=== PATIENT | female | born 1955 | race Hispanic/Latino ===

== ENCOUNTER 2021-12-08 15:59 | Inpatient (IN) | payer OTHER ==
[~2021-12-08] VITALS: Ht 160 cm; Wt 47.4 kg
[~2021-12-08 15:59] MED LIST: ASPI-1005 PO; ATOR20TA65 PO; CLOB10TA17 PO; CLOP75TA14 PO; LEVO112C4 PO; METH2.5T6 PO; PHEN32.46 PO; PHEN64.8 PO; PRED5TAB PO
[2021-12-08 16:39] LABS: BASOPHILS % (AUTO) 0.9 % (0.0-5.0); EOSINOPHILS % (AUTO) 0.9 % (0.0-8.0); HEMATOCRIT 44.1 % (36-48); LYMPHOCYTES % (AUTO) 20.4 % (21.0-51.0); MEAN CORPUSCULAR HGB CONC 33.8 g/dL (32.0-36.0); MEAN CORPUSCULAR VOLUME 97.6 fL (79-99); MONOCYTES % (AUTO) 9.3 % (3.0-13.0); NEUTROPHILS % (AUTO) 68.2 % (40.0-77.0); PLATELET COUNT (AUTO) 157 K/uL (130-400); RED BLOOD CELL COUNT(AUTO) 4.52 MIL/uL (4.00-5.50); RED CELL DISTRIBUTION WIDTH 12.8 % (11.0-15.5); WHITE BLOOD COUNT (AUTO) 6.7 K/uL (4.8-10.8)
[2021-12-08 16:47] LABS: CREATININE 0.9 mg/dL (0.5-1.5); POTASSIUM 4.5 mmol/L (3.5-5.1)
[2021-12-08 16:51] LABS: MAGNESIUM 2.1 mg/dL (1.80-2.40); TOTAL PROTEIN, SERUM 7.6 g/dL (6.0-8.3)
[2021-12-08] MEDS ORDERED: ASPIRIN 325MG TAB PO ONE (17:30)
[2021-12-08 17:43] LABS: INR 0.94 (0.85-1.15); PROTHROMBIN TIME 10.3 SEC (9.6-11.6)
[2021-12-08 17:45] LABS: PARTIAL THROMBOPLASTIN TIME 25.3 SEC (26.3-35.5)
[2021-12-08] MEDS ORDERED: NITROGLYCERIN 0.4 MG SL TAB SL PRN (18:00)
[2021-12-08] MEDS ORDERED: ACETAMINOPHEN 500 MG TABLET PO PRN (18:00)
[2021-12-08] MEDS ORDERED: HEPARIN 5,000 UNIT VIAL SQ SCH (21:00)
[2021-12-08] MEDS ORDERED: 0.9%NACL 1000ML 1,000 ML IV SCH (21:00)
[2021-12-08] MEDS: ATORVASTATIN 20 MG TABLET PO SCH ×2 (21:31→21:34)
[2021-12-08] MEDS: CLOBAZAM 10 MG PO SCH (21:36)
[2021-12-08] MEDS ORDERED: ENOXAPARIN SODIUM 40 MG/0.4 ML SYRINGE SQ ONE (22:00)
[2021-12-09 02:29] LABS: BASOPHILS % (AUTO) 0.8 % (0.0-5.0); EOSINOPHILS % (AUTO) 2.3 % (0.0-8.0); HEMATOCRIT 37.1 % (36-48); LYMPHOCYTES % (AUTO) 36.5 % (21.0-51.0); MEAN CORPUSCULAR HEMOGLOBIN 32.9 pg (27.0-33.0); MEAN CORPUSCULAR VOLUME 96.9 fL (79-99); MONOCYTES % (AUTO) 14.2 % (3.0-13.0); PLATELET COUNT (AUTO) 144 K/uL (130-400); RED BLOOD CELL COUNT(AUTO) 3.83 MIL/uL (4.00-5.50); RED CELL DISTRIBUTION WIDTH 12.9 % (11.0-15.5)
[2021-12-09 02:48] LABS: CREATININE 0.6 mg/dL (0.5-1.5); POTASSIUM 3.6 mmol/L (3.5-5.1)
[2021-12-09] MEDS ORDERED: SULF500T8 PO (06:32)
[2021-12-09] MEDS ORDERED: PHARMACY COMMUNICATION MISC SCH (08:30)
[2021-12-09] MEDS ORDERED: ENOXAPARIN SODIUM 60 MG/0.6 ML SQ SCH (09:00)
[2021-12-09] MEDS: PREDNISONE 5 MG TABLET PO SCH (09:56)
[2021-12-09] MEDS: CLOPIDOGREL 75MG TAB PO SCH (09:56)
[2021-12-09] MEDS: SULFASALAZINE 500 MG TAB.DR PO SCH ×2 (09:56→21:00)
[2021-12-09] MEDS: ASPIRIN 81 MG EC TAB PO SCH (09:56)
[2021-12-09] MEDS: CLOBAZAM 10 MG PO SCH ×4 (09:57→21:00)
[2021-12-09 11:15] VITALS: BP 103/56
[2021-12-09 16:08] VITALS: BP 100/57
[2021-12-09] MEDS ORDERED: CLOBAZAM 10 MG PO SCH (17:00)
[2021-12-09 20:05] VITALS: BP 129/38
[2021-12-09] MEDS ORDERED: PHENOBARBITAL 1/4 GR TABLET PO SCH (21:00)
[2021-12-10 00:04] VITALS: BP 122/60
[2021-12-10 04:00] VITALS: BP 140/69
[2021-12-10 04:00] LABS: BASOPHILS % (AUTO) 0.8 % (0.0-5.0); EOSINOPHILS % (AUTO) 3.1 % (0.0-8.0); HEMATOCRIT 39.2 % (36-48); LYMPHOCYTES % (AUTO) 40.8 % (21.0-51.0); MEAN CORPUSCULAR HEMOGLOBIN 32.8 pg (27.0-33.0); MEAN CORPUSCULAR HGB CONC 33.9 g/dL (32.0-36.0); MEAN CORPUSCULAR VOLUME 96.6 fL (79-99); MONOCYTES % (AUTO) 15.3 % (3.0-13.0); PLATELET COUNT (AUTO) 149 K/uL (130-400); RED BLOOD CELL COUNT(AUTO) 4.06 MIL/uL (4.00-5.50); RED CELL DISTRIBUTION WIDTH 12.8 % (11.0-15.5); WHITE BLOOD COUNT (AUTO) 5.2 K/uL (4.8-10.8)
[2021-12-10 04:12] LABS: CREATININE 0.7 mg/dL (0.5-1.5); POTASSIUM 4.3 mmol/L (3.5-5.1)
[2021-12-10] MEDS ORDERED: LEVOTHYROXINE 112 MCG TABLET PO SCH (08:00)
[2021-12-10 08:58] VITALS: BP 121/77
[2021-12-10] MEDS: SULFASALAZINE 500 MG TAB.DR PO SCH (09:56)
[2021-12-10] MEDS: CLOPIDOGREL 75MG TAB PO SCH (09:57)
[2021-12-10] MEDS: PREDNISONE 5 MG TABLET PO SCH (09:57)
[2021-12-10] MEDS: ASPIRIN 81 MG EC TAB PO SCH (09:57)
[2021-12-10] MEDS: CLOBAZAM 10 MG PO SCH (09:57)
[2021-12-10 12:31] VITALS: BP 117/66
[2021-12-10] MEDS ORDERED: LEVO112C4 PO (13:16)
== END 2021-12-10 14:30 | disposition home or self-care (01) | DRG 281 ==
LOC: EDH 15:59 → EDHIP 17:44 → 2AH 12-09 10:30
PROVIDERS: ADMIT Internal Medicine; ATTEND Internal Medicine
DX: I21.4 Non-ST elevation (NSTEMI) myocardial infarction (principal); E27.49 Other adrenocortical insufficiency; M06.9 Rheumatoid arthritis, unspecified; Z20.822 Contact with and (suspected) exposure to COVID-19; I25.10 Atherosclerotic heart disease of native coronary artery without angina pectoris; G40.909 Epilepsy, unspecified, not intractable, without status epilepticus; E78.5 Hyperlipidemia, unspecified; E03.8 Other specified hypothyroidism; Z88.8 Allergy status to other drugs, medicaments and biological substances; I25.2 Old myocardial infarction; Z86.011 Personal history of benign neoplasm of the brain; Z88.1 Allergy status to other antibiotic agents
CPT/HCPCS: 36415; 71045; 80048; 80053; 82550; 83690; 83735; 83874; 83880; 84439; 84443; 84481; 84484; 85025; 85610; 85730; 87635; 93005; 93306; 93356; 93925; G0378; J1650; J7512

== ENCOUNTER 2022-03-31 08:52 | Observation (INO) | payer OTHER ==
[~2022-03-31] VITALS: Ht 160 cm; Wt 47.6 kg
[~2022-03-31 08:52] MED LIST changes: +CLOP-31 PO; -CLOP75TA14 PO; -METH2.5T6 PO; -PHEN32.46 PO; +SULF500T8 PO
[2022-03-31 09:26] LABS: BASOPHILS % (AUTO) 0.3 % (0.0-5.0); EOSINOPHILS % (AUTO) 1.4 % (0.0-8.0); HEMATOCRIT 44.9 % (36-48); LYMPHOCYTES % (AUTO) 19.4 % (21.0-51.0); MEAN CORPUSCULAR HEMOGLOBIN 32.9 pg (27.0-33.0); MEAN CORPUSCULAR HGB CONC 33.6 g/dL (32.0-36.0); MEAN CORPUSCULAR VOLUME 97.8 fL (79-99); MONOCYTES % (AUTO) 7.5 % (3.0-13.0); NEUTROPHILS % (AUTO) 71.1 % (40.0-77.0); PLATELET COUNT (AUTO) 174 K/uL (130-400); RED BLOOD CELL COUNT(AUTO) 4.59 MIL/uL (4.00-5.50); RED CELL DISTRIBUTION WIDTH 12.2 % (11.0-15.5); WHITE BLOOD COUNT (AUTO) 6.2 K/uL (4.8-10.8)
[2022-03-31 09:36] LABS: CREATININE 0.9 mg/dL (0.5-1.5); POTASSIUM 3.6 mmol/L (3.5-5.1)
[2022-03-31 09:40] LABS: ALBUMIN 3.6 g/dL (3.5-5.0); TOTAL PROTEIN, SERUM 7.5 g/dL (6.0-8.3)
[2022-03-31] MEDS ORDERED: ONDANSETRON 4MG INJ IVP PRN (12:00)
[2022-03-31] MEDS ORDERED: ACETAMINOPHEN 500 MG TABLET PO PRN (12:00)
[2022-03-31] MEDS ORDERED: NITROGLYCERIN 0.4 MG SL TAB SL PRN (12:00)
[2022-03-31] MEDS ORDERED: POTASSIUM CHLORIDE 10MEQ SR TAB PO SCH (12:30)
[2022-03-31] MEDS ORDERED: 0.9%NACL 1000ML 1,000 ML IV SCH (12:30)
[2022-03-31 12:38] LABS: INR 0.94 (0.85-1.15); PROTHROMBIN TIME 10.3 SEC (9.6-11.6)
[2022-03-31 12:44] LABS: HEMOGLOBIN A1C 5.1 % (4.0-6.0)
[2022-03-31 13:43] LABS: BILIRUBIN,URINE NEGATIVE (NEGATIVE); COLOR,URINE YELLOW (YELLOW); GLUCOSE, URINE (UA) NEGATIVE (NEGATIVE); KETONES,URINE NEGATIVE (NEGATIVE); LEUKOCYTE ESTERASE ,URINE NEGATIVE Leu/uL (NEGATIVE); NITRATE,URINE NEGATIVE (NEGATIVE); OCCULT BLOOD,URINE NEGATIVE (NEGATIVE); PH,URINE 7.5 (5.0-8.0); PROTEIN,URINE 10 mg/dL (NEGATIVE); UROBILINOGEN,URINE 0.2 mg/dL (0.2-1.0)
[2022-03-31 13:46] LABS: APPEARANCE,URINE SLIGHTLY CLOUDY (CLEAR)
[2022-03-31 13:49] LABS: MUCUS,URINE RARE LPF (None Seen); OTHER CASTS, URINE 3 /LPF (None Seen); RBC,URINE 0-1 /HPF (0-1); SQUAMOUS EPITHELIAL CELL,UR MOD /HPF (0-2); WBC,URINE 0-1 /HPF (0-1)
[2022-03-31 20:15] VITALS: BP 117/53
[2022-03-31] MEDS ORDERED: ATORVASTATIN 20 MG TABLET PO SCH (21:00)
[2022-03-31] MEDS ORDERED: LORA10TA7 PO (22:50)
[2022-03-31] MEDS ORDERED: NITR0.4T50 SL (22:50)
[2022-03-31] MEDS ORDERED: ESZO1TAB13 PO (22:50)
[2022-04-01] VITALS: BP 121/57
[2022-04-01 04:00] VITALS: BP 122/67
[2022-04-01] MEDS ORDERED: PHARMACY COMMUNICATION MISC SCH (05:30)
[2022-04-01 05:59] LABS: BASOPHILS % (AUTO) 0.4 % (0.0-5.0); EOSINOPHILS % (AUTO) 3.7 % (0.0-8.0); HEMATOCRIT 39.6 % (36-48); LYMPHOCYTES % (AUTO) 37.2 % (21.0-51.0); MEAN CORPUSCULAR HEMOGLOBIN 32.5 pg (27.0-33.0); MEAN CORPUSCULAR HGB CONC 33.3 g/dL (32.0-36.0); MEAN CORPUSCULAR VOLUME 97.5 fL (79-99); MONOCYTES % (AUTO) 13.6 % (3.0-13.0); NEUTROPHILS % (AUTO) 44.9 % (40.0-77.0); PLATELET COUNT (AUTO) 157 K/uL (130-400); RED BLOOD CELL COUNT(AUTO) 4.06 MIL/uL (4.00-5.50); RED CELL DISTRIBUTION WIDTH 12.2 % (11.0-15.5); WHITE BLOOD COUNT (AUTO) 5.2 K/uL (4.8-10.8)
[2022-04-01 06:13] LABS: CREATININE 0.7 mg/dL (0.5-1.5); MAGNESIUM 1.9 mg/dL (1.80-2.40); POTASSIUM 3.7 mmol/L (3.5-5.1); TOTAL PROTEIN, SERUM 6.2 g/dL (6.0-8.3)
[2022-04-01] MEDS ORDERED: LEVOTHYROXINE 100 MCG TABLET PO SCH (06:30)
[2022-04-01] MEDS ORDERED: LEVOTHYROXINE 112 MCG TABLET PO SCH (06:30)
[2022-04-01 08:56] VITALS: BP 125/64
[2022-04-01] MEDS ORDERED: PREDNISONE 5 MG TABLET PO SCH (09:00)
[2022-04-01] MEDS ORDERED: CLOPIDOGREL 75MG TAB PO SCH (09:00)
[2022-04-01] MEDS ORDERED: ASPIRIN 81 MG EC TAB PO SCH (09:00)
[2022-04-01] MEDS ORDERED: LORATADINE 10 MG TABLET PO SCH (09:00)
[2022-04-01 11:34] VITALS: BP 139/62
[2022-04-01] MEDS ORDERED: LEVO100C4 PO (15:42)
[2022-04-01 16:23] VITALS: BP 126/71
[2022-04-02] MEDS ORDERED: PREDNISONE 5 MG TABLET PO SCH (09:00)
== END 2022-04-01 17:36 | disposition home or self-care (01) ==
LOC: EDH 08:52 → EDHIP 11:52 → INTOOBSV 11:52 → 2DH 20:24
PROVIDERS: ADMIT Internal Medicine; ATTEND Internal Medicine
DX: R00.2 Palpitations (principal); I21.4 Non-ST elevation (NSTEMI) myocardial infarction; R74.8 Abnormal levels of other serum enzymes; D32.9 Benign neoplasm of meninges, unspecified; D35.2 Benign neoplasm of pituitary gland; E03.8 Other specified hypothyroidism; E78.5 Hyperlipidemia, unspecified; I10 Essential (primary) hypertension; I25.10 Atherosclerotic heart disease of native coronary artery without angina pectoris; I25.2 Old myocardial infarction; I49.9 Cardiac arrhythmia, unspecified; M06.9 Rheumatoid arthritis, unspecified; R11.2 Nausea with vomiting, unspecified; Z86.011 Personal history of benign neoplasm of the brain; Z88.1 Allergy status to other antibiotic agents; Z79.82 Long term (current) use of aspirin; Z79.899 Other long term (current) drug therapy; Z98.890 Other specified postprocedural states
CPT/HCPCS: 96360; 96361 ×2; 99285; 83036; 84443; 83735 ×2; 84484 ×2; 80053 ×2; 83880; 85025 ×2; 85610; 85730; 84439; 84481; 81001; 36415 ×2; 71045; 93306; 93005; G0378 ×5; J7512